=== PATIENT | male | born 1990 | race Caucasian/White ===

== ENCOUNTER 2016-03-17 19:21 | Inpatient (IN) | payer SELFPAY ==
[~2016-03-17] VITALS: Ht 182.9 cm; Wt 95.3 kg
[2016-03-17 20:06] LABS: KETONES,URINE Negative (NEGATIVE); LEUKOCYTE ESTERASE ,URINE Negative (NEGATIVE); PH,URINE 5.5 (5.0-8.0)
[2016-03-17 20:07] LABS: ADD UA MICROSCOPIC YES
[2016-03-17 20:21] LABS: ADD URINE CULTURE NO; MUCUS,URINE Moderate /LPF (None Seen); RBC,URINE NONE SEEN /HPF (0-2); WBC,URINE NONE SEEN /HPF (0-3)
[2016-03-17] MEDS ORDERED: ONDANSETRON HCL/PF 4 MG/2 ML VIAL IVP ONE (21:30)
[2016-03-17] MEDS ORDERED: MORPHINE SULFATE INJ 2 MG/ML DISP.SYRIN IV ONE ×2 (21:30→23:30)
[2016-03-17] MEDS ORDERED: IV NS 0.9% 1,000 ML BAG IV ONE (21:30)
[2016-03-17] MEDS ORDERED: MORPHINE SULFATE INJ 2 MG/ML DISP.SYRIN ONE ×2 (21:39→21:46)
[2016-03-17] MEDS ORDERED: ONDANSETRON HCL/PF 4 MG/2 ML VIAL ONE (21:39)
[2016-03-17] MEDS ORDERED: IV SET PRIMARY PUMP SET 1 EA INFUS.SET MC ONE ×2 (21:39→23:05)
[2016-03-17] MEDS ORDERED: IV NS 0.9% 1,000 ML ONE (21:39)
[2016-03-17 22:06] LABS: BASOPHILS # (AUTO) 0.2 /CMM (0.0-0.2); BASOPHILS % (AUTO) 0.6 % (0.0-2.0); DIFF TOTAL % 100 %; HEMATOCRIT 50 % (39-51); HEMOGLOBIN 16.6 g/dL (13.5-17.5); LYMPHOCYTES # (AUTO) 1.2 /CMM (0.8-4.8); LYMPHOCYTES % (AUTO) 4.5 % (20.0-44.0); MEAN CORPUSCULAR HEMOGLOBIN 29 PG (26.0-33.0); MEAN CORPUSCULAR HGB CONC 33 g/dl (31.0-36.0); MEAN CORPUSCULAR VOLUME 88 fL (80-96); MONOCYTES % (AUTO) 7.3 % (2.0-12.0); NEUTROPHILS # (AUTO) 23.9 /CMM (1.8-8.9); NEUTROPHILS % (AUTO) 87.6 % (43.0-81.0); PLATELET COUNT (AUTO) 359 /CMM (150-450); RED BLOOD CELL COUNT(AUTO) 5.74 MIL/uL (4.5-6.0); WHITE BLOOD COUNT (AUTO) 27.3 K/uL (4.3-11.0)
[2016-03-17 22:14] LABS: CALCIUM, SERUM 9.4 mg/dL (8.5-10.1); POTASSIUM 3.8 mmol/L (3.5-5.1)
[2016-03-17 22:20] LABS: ALBUMIN 4.3 g/dL (3.4-5.0); BILIRUBIN,DIRECT 0.2 mg/dL (0.0-0.2); BILIRUBIN,TOTAL 1.2 mg/dL (0.2-1.0)
[2016-03-17] MEDS ORDERED: PIPERACILLIN /TAZOBACTAM 4.5 G in IV D5W 50 ML IV ONE (23:00)
[2016-03-17] MEDS ORDERED: IV D5W 50 ML IV ONE (23:05)
[2016-03-17] MEDS ORDERED: PIPERACILLIN /TAZOBACTAM 2.25 G VIAL IV ONE (23:05)
[2016-03-17 23:41] LABS: BAND % (MANUAL) 3 % (0.0-5.0); BASOPHILS % (MANUAL) 0 % (0.0-2.0); EOSINOPHILS % (MANUAL) 0 % (0-4); LYMPHOCYTES % (MANUAL) 5 % (16-48)
[2016-03-18] MEDS ORDERED: MAG HYDROX/AL HYDROX/SIMETH 30 ML UDC PO PRN
[2016-03-18] MEDS ORDERED: ACETAMINOPHEN 325 MG TABLET PO PRN
[2016-03-18] MEDS ORDERED: MAGNESIUM HYDROXIDE 30 ML UDC PO PRN
[2016-03-18] MEDS ORDERED: Z GUARD REMEDY 2 OZ OINT TP PRN
[2016-03-18] MEDS ORDERED: ONDANSETRON HCL/PF 4 MG/2 ML VIAL IVP PRN
[2016-03-18] MEDS ORDERED: MORPHINE SULFATE INJ 2 MG/ML DISP.SYRIN IV PRN
[2016-03-18] MEDS ORDERED: ZOLPIDEM TARTRATE 5 MG TABLET PO PRN
[2016-03-18 00:30] VITALS: BP 120/64
[2016-03-18 00:45] VITALS: BP 120/64
[2016-03-18] MEDS ORDERED: PIPERACILLIN /TAZOBACTAM 3.375 G VIAL IV ONE (03:48)
[2016-03-18] MEDS ORDERED: IV D5W 50 ML IV ONE (03:49)
[2016-03-18] MEDS ORDERED: IV NS 0.9% 1,000 ML ONE (03:57)
[2016-03-18] MEDS ORDERED: SECONDARY IV SET 1 EA INFUS.SET MC ONE (03:57)
[2016-03-18] MEDS ORDERED: IV SET PRIMARY PUMP SET 1 EA INFUS.SET MC ONE (03:57)
[2016-03-18] MEDS: IV NS 0.9% 1,000 ML IV PRN ×2 (04:08→15:05)
[2016-03-18] MEDS: PIPERACILLIN /TAZOBACTAM 3.375 G in IV D5W 50 ML IV SCH ×6 (05:38→23:31)
[2016-03-18 07:33] LABS: BASOPHILS % (AUTO) 0.1 % (0.0-2.0); DIFF TOTAL % 100 %; HEMATOCRIT 44 % (39-51); HEMOGLOBIN 14.7 g/dL (13.5-17.5); LYMPHOCYTES # (AUTO) 1.7 /CMM (0.8-4.8); LYMPHOCYTES % (AUTO) 6.9 % (20.0-44.0); MEAN CORPUSCULAR HEMOGLOBIN 29 PG (26.0-33.0); MEAN CORPUSCULAR HGB CONC 34 g/dl (31.0-36.0); MEAN CORPUSCULAR VOLUME 88 fL (80-96); MONOCYTES # (AUTO) 0.9 /CMM (0.1-1.30); MONOCYTES % (AUTO) 3.6 % (2.0-12.0); NEUTROPHILS # (AUTO) 21.4 /CMM (1.8-8.9); NEUTROPHILS % (AUTO) 89.4 % (43.0-81.0); PLATELET COUNT (AUTO) 323 /CMM (150-450); RED BLOOD CELL COUNT(AUTO) 5.01 MIL/uL (4.5-6.0)
[2016-03-18 07:48] LABS: ALBUMIN 3.2 g/dL (3.4-5.0); CALCIUM, SERUM 8.5 mg/dL (8.5-10.1); CREATININE 1.1 mg/dL (0.6-1.3); PHOSPHORUS 3.2 mg/dL (2.5-4.9); POTASSIUM 3.7 mmol/L (3.5-5.1); TOTAL PROTEIN, SERUM 7.2 g/dL (6.4-8.2)
[2016-03-18] MEDS: PANTOPRAZOLE 40 MG VIAL IV SCH (10:49)
[2016-03-18] MEDS: HYDROCODONE/APAP 5/325MG 1 EACH TABLET PO PRN ×3 (10:52→19:39)
[2016-03-18 13:21] LABS: BAND % (MANUAL) 2 % (0.0-5.0); LYMPHOCYTES % (MANUAL) 7 % (16-48)
[2016-03-18 13:22] LABS: PLATELET ESTIMATE ADEQUATE; RBC MORPHOLOGY COMMENT NORMAL RBC MORPH
[2016-03-18 20:00] VITALS: BP 107/60
[2016-03-18 20:36] VITALS: BP 107/60
[2016-03-19] MEDS: IV NS 0.9% 1,000 ML IV PRN ×3 (00:20→17:36)
[2016-03-19] MEDS: PIPERACILLIN /TAZOBACTAM 3.375 G in IV D5W 50 ML IV SCH ×3 (05:25→17:33)
[2016-03-19 08:00] VITALS: BP 104/53
[2016-03-19] MEDS: PANTOPRAZOLE 40 MG VIAL IV SCH (08:42)
[2016-03-19] MEDS: HYDROCODONE/APAP 5/325MG 1 EACH TABLET PO PRN ×2 (12:51→21:19)
[2016-03-19 14:37] LABS: BASOPHILS % (AUTO) 0.3 % (0.0-2.0); DIFF TOTAL % 100 %; EOSINOPHILS # (AUTO) 0.1 /CMM (0.0-0.7); EOSINOPHILS % (AUTO) 0.3 % (0.0-6.0); HEMATOCRIT 39 % (39-51); LYMPHOCYTES # (AUTO) 1.2 /CMM (0.8-4.8); LYMPHOCYTES % (AUTO) 7.9 % (20.0-44.0); MEAN CORPUSCULAR HEMOGLOBIN 29 PG (26.0-33.0); MEAN CORPUSCULAR HGB CONC 33 g/dl (31.0-36.0); MEAN CORPUSCULAR VOLUME 88 fL (80-96); MONOCYTES # (AUTO) 1.1 /CMM (0.1-1.30); NEUTROPHILS # (AUTO) 13.2 /CMM (1.8-8.9); NEUTROPHILS % (AUTO) 84.5 % (43.0-81.0); PLATELET COUNT (AUTO) 320 /CMM (150-450); RED BLOOD CELL COUNT(AUTO) 4.46 MIL/uL (4.5-6.0); WHITE BLOOD COUNT (AUTO) 15.6 K/uL (4.3-11.0)
[2016-03-19 16:00] VITALS: BP 133/73
[2016-03-19 18:00] VITALS: BP 133/73
[2016-03-19 20:00] VITALS: BP 137/77
[2016-03-19 20:45] VITALS: BP 103/58
[2016-03-20] MEDS: PIPERACILLIN /TAZOBACTAM 3.375 G in IV D5W 50 ML IV SCH ×3 (00:36→12:00)
[2016-03-20] MEDS: IV NS 0.9% 1,000 ML IV PRN (07:00)
[2016-03-20 08:00] VITALS: BP 100/60
[2016-03-20] MEDS: PANTOPRAZOLE 40 MG VIAL IV SCH (09:16)
[2016-03-20 13:30] VITALS: BP 100/60
== END 2016-03-20 13:30 | disposition home or self-care (01) | DRG 392 ==
LOC: ER 19:23 → MED 23:13
PROVIDERS: ADMIT Family Medicine; ATTEND Family Medicine
DX: K57.92 Diverticulitis of intestine, part unspecified, without perforation or abscess without bleeding (principal); K35.80 Unspecified acute appendicitis; D72.825 Bandemia; J45.909 Unspecified asthma, uncomplicated; N20.0 Calculus of kidney; E66.9 Obesity, unspecified; Z68.28 Body mass index [BMI] 28.0-28.9, adult; R16.0 Hepatomegaly, not elsewhere classified; Z87.442 Personal history of urinary calculi
CPT/HCPCS: 36415; 80048-TC; 80053-TC; 80076-TC; 81000-TC; 83690-TC; 83735-TC; 84100-TC; 85025-TC; 87040-TC; A4606; C9113; J2270; J2405; J2543; J7030; J7060; Z7610

== ENCOUNTER 2017-06-01 23:18 | Emergency (ER) | payer OTHER ==
[~2017-06-01] VITALS: Ht 182.9 cm; Wt 99.8 kg
--- NOTE | 2017-06-01 23:25 | NUR ---
PT BB SELF FROM HOME WITH C/O OF R AND L LOWER ABD PAIN 7/10 NONE RADIATING X 4 DAYS. PT IS AAOX4. RESP EVEN AND UNLABORED. NO S/S OF ACUTE DISTRESS NOTED. SKIN WNL. VSS. AWAITING MD FOR EVAL.
[2017-06-01 23:54] LABS: APPEARANCE,URINE CLEAR (CLEAR); BILIRUBIN,URINE NEGATIVE (NEGATIVE); BLOOD, URINE NEGATIVE Ery/uL (NEGATIVE); COLOR,URINE YELLOW (YELLOW); KETONES,URINE NEGATIVE (NEGATIVE); LEUKOCYTE ESTERASE ,URINE NEGATIVE (NEGATIVE); NITRITE, URINE NEGATIVE (NEGATIVE); PROTEIN,URINE NEGATIVE (NEGATIVE); UGLUCOSE NEGATIVE (NEGATIVE); UROBILINOGEN,URINE 0.2 EU/dL (0.2)
[2017-06-02] MEDS ORDERED: MORPHINE SULFATE INJ 2 MG/ML DISP.SYRIN IV ONE (00:30)
[2017-06-02] MEDS ORDERED: ONDANSETRON HCL/PF 4 MG/2 ML VIAL IVP ONE (00:30)
--- NOTE | 2017-06-02 00:30 | NUR ---
PT TO CT
--- NOTE | 2017-06-02 00:35 | NUR ---
PT BACK FROM CT
[2017-06-02 00:43] LABS: BASOPHILS % (AUTO) 0.5 % (0.0-2.0); EOSINOPHILS # (AUTO) 0.1 /CMM (0.0-0.7); HEMATOCRIT 48 % (39-51); HEMOGLOBIN 16.4 g/dL (13.5-17.5); LYMPHOCYTES # (AUTO) 2.8 /CMM (0.8-4.8); LYMPHOCYTES % (AUTO) 26.9 % (20.0-44.0); MEAN CORPUSCULAR HEMOGLOBIN 30 PG (26.0-33.0); MEAN CORPUSCULAR HGB CONC 34 g/dl (31.0-36.0); MEAN CORPUSCULAR VOLUME 88 fL (80-96); MONOCYTES # (AUTO) 0.8 /CMM (0.1-1.30); MONOCYTES % (AUTO) 7.1 % (2.0-12.0); NEUTROPHILS # (AUTO) 6.8 /CMM (1.8-8.9); NEUTROPHILS % (AUTO) 64.5 % (43.0-81.0); PLATELET COUNT (AUTO) 375 /CMM (150-450); RDW COEFFICIENT OF VARIATION 13.6 (11.5-15.0); RED BLOOD CELL COUNT(AUTO) 5.52 MIL/uL (4.5-6.0); WHITE BLOOD COUNT (AUTO) 10.6 K/uL (4.3-11.0)
[2017-06-02] MEDS ORDERED: ONDANSETRON HCL/PF 4 MG/2 ML VIAL ONE (00:43)
[2017-06-02] MEDS ORDERED: MORPHINE SULFATE INJ 4 MG/ML DISP.SYRIN ONE (00:44)
[2017-06-02 01:01] LABS: CALCIUM, SERUM 9.3 mg/dL (8.5-10.1); POTASSIUM 3.7 mmol/L (3.5-5.1)
[2017-06-02 01:05] LABS: ALBUMIN 4.1 g/dL (3.4-5.0); BILIRUBIN,DIRECT 0.1 mg/dL (0.0-0.2); BILIRUBIN,TOTAL 0.6 mg/dL (0.2-1.0); TOTAL PROTEIN, SERUM 8.3 g/dL (6.4-8.2)
[2017-06-02 01:35] VITALS: BP 138/78
--- NOTE | 2017-06-02 01:37 | NUR ---
Patient discharged to home in stable condition. Written and verbal after care instructions given. Patient verbalizes understanding of instruction.IV removed. Catheter intact and site benign. Pressure and 4x4 applied to site. No bleeding noted.
== END 2017-06-02 01:36 | disposition home or self-care (01) ==
LOC: ER 23:18
DX: R10.12 Left upper quadrant pain (principal); R10.11 Right upper quadrant pain; K76.0 Fatty (change of) liver, not elsewhere classified
CPT/HCPCS: 36415; 80048-TC; 80076-TC; 81000-TC; 83690-TC; 85025-TC; A4606; J2270; J2405; Z7610

== ENCOUNTER 2017-11-08 10:03 | Emergency (ER) | payer OTHER ==
[~2017-11-08] VITALS: Ht 175.3 cm; Wt 102.5 kg
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
[2017-11-08] MEDS ORDERED: FENTANYL PF 100MCG/2ML AMPUL ONE (10:17)
[2017-11-08] MEDS ORDERED: FENTANYL PF 100MCG/2ML AMPUL IV ONE (10:30)
[2017-11-08] MEDS ORDERED: PROPOFOL 20 ML IV ONE (11:01)
[2017-11-08] MEDS ORDERED: MORPHINE SULFATE INJ 4 MG/ML DISP.SYRIN ONE (12:52)
[2017-11-08] MEDS ORDERED: MORPHINE SULFATE INJ 2 MG/ML DISP.SYRIN IV ONE (13:00)
--- NOTE | 2017-11-08 13:08 | NUR ---
IV removed. Catheter intact and site benign. Pressure and 4x4 applied to site. No bleeding noted.
--- NOTE | 2017-11-08 13:08 | NUR ---
PT. VERBALIZED UNDERSTANDING OF AFTERCARE INSTRUCTIONS.Patient discharged to home in stable condition. Written and verbal after care instructions given. Patient verbalizes understanding of instruction.
[2017-11-08 13:26] VITALS: BP 157/99
== END 2017-11-08 13:26 | disposition home or self-care (01) ==
LOC: ER 10:04
DX: S52.502A Unspecified fracture of the lower end of left radius, initial encounter for closed fracture (principal); V49.49XA Driver injured in collision with other motor vehicles in traffic accident, initial encounter; Y93.89 Activity, other specified; Y92.410 Unspecified street and highway as the place of occurrence of the external cause; Y99.8 Other external cause status
CPT/HCPCS: 25605; 73100 ×2; 96374; 99152; 99285; A4606; J2270; J2704; J3010; Z7610

== ENCOUNTER 2020-08-06 18:35 | Emergency (ER) | payer OTHER ==
[~2020-08-06] VITALS: Ht 182.9 cm; Wt 99.8 kg
[2020-08-06 18:43] VITALS: BP 139/94
== END 2020-08-06 19:04 | disposition home or self-care (01) ==
LOC: ER 18:45
DX: A08.4 Viral intestinal infection, unspecified (principal)

== ENCOUNTER 2021-04-18 18:25 | Emergency (ER) | payer SELFPAY ==
[~2021-04-18] VITALS: Ht 180.3 cm; Wt 91.2 kg
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
--- NOTE | 2021-04-18 18:58 | NUR ---
Patient discharged to home in stable condition. Written and verbal after care instructions given. Patient verbalizes understanding of instruction.
[2021-04-18 19:16] VITALS: BP 132/90
== END 2021-04-18 19:17 | disposition home or self-care (01) ==
LOC: ER 18:36
DX: S01.511A Laceration without foreign body of lip, initial encounter (principal); F15.10 Other stimulant abuse, uncomplicated; Y04.0XXA Assault by unarmed brawl or fight, initial encounter; Y93.89 Activity, other specified; Y92.89 Other specified places as the place of occurrence of the external cause; Y99.8 Other external cause status

== ENCOUNTER 2023-06-04 19:36 | Emergency (ER) | payer MEDICAID ==
[~2023-06-04] VITALS: Ht 180.3 cm; Wt 99.3 kg
[2023-06-04 20:25] VITALS: TEMP 99
[2023-06-04 21:00] LABS: BASOPHILS # (AUTO) 0.2 K/uL (0.0-0.2); BASOPHILS % (AUTO) 1.3 % (0.0-2.0); EOSINOPHILS # (AUTO) 0.1 K/uL (0.0-0.7); EOSINOPHILS % (AUTO) 0.5 % (0.0-6.0); HEMATOCRIT 46 % (39-51); HEMOGLOBIN 15.2 g/dL (13.5-17.5); LYMPHOCYTES # (AUTO) 1.7 K/uL (0.8-4.8); LYMPHOCYTES % (AUTO) 12.6 % (20.0-44.0); MEAN CORPUSCULAR HEMOGLOBIN 29 PG (26.0-33.0); MEAN CORPUSCULAR HGB CONC 33 g/dl (31.0-36.0); MEAN CORPUSCULAR VOLUME 88 fL (80-96); MONOCYTES # (AUTO) 1.1 K/uL (0.1-1.30); MONOCYTES % (AUTO) 7.9 % (2.0-12.0); NEUTROPHILS # (AUTO) 10.6 K/uL (1.8-8.9); NEUTROPHILS % (AUTO) 77.7 % (43.0-81.0); PLATELET COUNT (AUTO) 318 K/uL (150-450); RED CELL DISTRIBUTION WIDTH 13.9 % (11.5-15.0); WHITE BLOOD COUNT (AUTO) 13.6 K/uL (4.3-11.0)
[2023-06-04] MEDS ORDERED: MAG HYDROX/AL HYDROX/SIMETH 30 ML UDC ONE (21:01)
[2023-06-04] MEDS ORDERED: LIDOCAINE VISCOUS 2% UD 15 ML UDC ONE (21:02)
[2023-06-04] MEDS: LIDOCAINE VISCOUS 2% UD 15 ML UDC MM ONE (21:28)
[2023-06-04] MEDS: MAG HYDROX/AL HYDROX/SIMETH 30 ML UDC PO ONE (21:29)
[2023-06-04 21:32] LABS: ALBUMIN 3.9 g/dL (3.4-5.0); BILIRUBIN,DIRECT 0.3 mg/dL (0.0-0.2); BILIRUBIN,TOTAL 2.2 mg/dL (0.2-1.0); CALCIUM, SERUM 9.9 mg/dL (8.5-10.1); POTASSIUM 3.9 mmol/L (3.5-5.1); TOTAL PROTEIN, SERUM 8.2 g/dL (6.4-8.2)
[2023-06-04] MEDS ORDERED: OMEP40CA21 PO (21:53)
[2023-06-04 22:03] VITALS: BP 141/81; O2SAT 99
[2023-06-04 22:38] LABS: APPEARANCE,URINE CLOUDY (CLEAR); BILIRUBIN,URINE NEGATIVE (NEGATIVE); BLOOD, URINE NEGATIVE Ery/uL (NEGATIVE); COLOR,URINE DARK YELLOW (YELLOW); KETONES,URINE NEGATIVE (NEGATIVE); LEUKOCYTE ESTERASE ,URINE NEGATIVE (NEGATIVE); NITRITE, URINE NEGATIVE (NEGATIVE); PROTEIN,URINE NEGATIVE (NEGATIVE); UGLUCOSE NEGATIVE (NEGATIVE)
== END 2023-06-04 22:04 | disposition home or self-care (01) ==
LOC: ER 19:38
DX: R10.13 Epigastric pain (principal); J45.909 Unspecified asthma, uncomplicated
CPT/HCPCS: 36415; 80048-TC; 80076-TC; 83690-TC; 85025-TC

== ENCOUNTER 2023-09-28 12:46 | Emergency (ER) | payer MEDICAID, OTHER ==
[~2023-09-28] VITALS: Ht 180.3 cm; Wt 102.1 kg
[~2023-09-28 12:46] MED LIST: OMEP40CA21 PO
[2023-09-28] MEDS: IV NS 0.9% 500 ML BAG IV ONE (14:23)
[2023-09-28] MEDS ORDERED: CEFTRIAXONE 500 MG VIAL ONE (14:25)
[2023-09-28] MEDS ORDERED: KETOROLAC TROMETHAMINE 15 MG/ML VIAL ONE (14:25)
[2023-09-28] MEDS ORDERED: LIDOCAINE 1% INJ 50 ML MDV IJ ONE (14:26)
[2023-09-28] MEDS: CEFTRIAXONE 1 G VIAL IM ONE (14:32)
[2023-09-28 14:44] LABS: BASOPHILS % (AUTO) 0.5 % (0.0-2.0); EOSINOPHILS # (AUTO) 0.1 K/uL (0.0-0.7); EOSINOPHILS % (AUTO) 0.7 % (0.0-6.0); HEMATOCRIT 47 % (39-51); HEMOGLOBIN 15.6 g/dL (13.5-17.5); LYMPHOCYTES # (AUTO) 1.4 K/uL (0.8-4.8); LYMPHOCYTES % (AUTO) 14.8 % (20.0-44.0); MEAN CORPUSCULAR HEMOGLOBIN 29 PG (26.0-33.0); MEAN CORPUSCULAR HGB CONC 33 g/dl (31.0-36.0); MEAN CORPUSCULAR VOLUME 89 fL (80-96); MONOCYTES # (AUTO) 0.7 K/uL (0.1-1.30); NEUTROPHILS # (AUTO) 7.1 K/uL (1.8-8.9); PLATELET COUNT (AUTO) 338 K/uL (150-450); RED CELL DISTRIBUTION WIDTH 14.4 % (11.5-15.0); WHITE BLOOD COUNT (AUTO) 9.4 K/uL (4.3-11.0)
[2023-09-28 14:54] LABS: CALCIUM, SERUM 8.9 mg/dL (8.5-10.1)
[2023-09-28 15:00] LABS: ALBUMIN 3.6 g/dL (3.4-5.0); BILIRUBIN,DIRECT 0.1 mg/dL (0.0-0.2); BILIRUBIN,TOTAL 0.7 mg/dL (0.2-1.0)
[2023-09-28] MEDS: KETOROLAC TROMETHAMINE 15 MG/ML VIAL IV ONE (15:07)
[2023-09-28] MEDS ORDERED: ACET-2605 PO (15:08)
[2023-09-28] MEDS ORDERED: TAMS-12 PO (15:08)
[2023-09-28] MEDS ORDERED: DOXY-326 PO (15:08)
[2023-09-28] MEDS ORDERED: IBUP-1955 PO (15:08)
[2023-09-28 15:20] VITALS: BP 160/102; TEMP 98; O2SAT 98
[2023-09-28] MEDS ORDERED: TAMSULOSIN 0.4 MG CAP.SR.24H ONE (15:21)
[2023-09-28] MEDS: TAMSULOSIN 0.4 MG CAP.SR.24H PO ONE (15:26)
[2023-09-28 15:30] LABS: APPEARANCE,URINE Slightly Cloudy (CLEAR); BILIRUBIN,URINE Negative (NEGATIVE); BLOOD, URINE Large Ery/uL (NEGATIVE); COLOR,URINE DARK YELLOW (YELLOW); KETONES,URINE Negative (NEGATIVE); LEUKOCYTE ESTERASE ,URINE Negative (NEGATIVE); NITRITE, URINE Negative (NEGATIVE); PROTEIN,URINE 30 mg/dl (NEGATIVE); UGLUCOSE Negative (NEGATIVE); UROBILINOGEN,URINE 0.2 EU/dL (0.2)
[2023-09-28 16:00] LABS: ADD URINE CULTURE NO; BACTERIA,URINE None seen /HPF (None Seen); MUCUS,URINE Moderate /LPF (None Seen); RBC,URINE 21-50 /HPF (0-2); SQUAMOUS EPITHELIAL CELL,UR None Seen /HPF (None Seen); WBC,URINE NONE SEEN /HPF (0-3)
[2023-09-30 09:08] LABS: CHLAMYDIA TRACHOMATIS NAA Negative (Negative); NEISSERIA GONORRHOEAE NAA Negative (Negative)
== END 2023-09-28 15:26 | disposition home or self-care (01) ==
LOC: ER 12:54
DX: N20.0 Calculus of kidney (principal); F15.10 Other stimulant abuse, uncomplicated; J45.909 Unspecified asthma, uncomplicated; Z20.2 Contact with and (suspected) exposure to infections with a predominantly sexual mode of transmission
CPT/HCPCS: 99285; 74176; 96374; 96361; 85025; 80048; 83690; 80076; 81001; 36415; 87491; 87591; 96372; J3490; J0696; J7040 ×2; J1885